=== PATIENT | male | born 1965 | race Caucasian/White ===

== ENCOUNTER → 2016-12-03 | Outpatient (CLI) | payer BC ==
[~2016-12-03] MED LIST: ADDERALL XR20 MG PO; CRESTOR20 MG PO; EFFEXOR XR75 MG PO; FENOFIBRATE160 MG PO; FLEXERIL10 MG PO; FLOMAX 0.4MG C0.4 MG PO; HYDROCODONE/ACE1 TA5 PO; KEFLEX 500MG.500 MG PO; LISINOPRIL 10MG10 MG PO; LORTAB 500 MG-71 TAB PO; MEDROL 4MG. DOSE4 MG PO; NORCO 325 MG-51 TAB PO; PERCOCET 10 MG1 EACH PO; PRILOSEC20 MG PO; TAMSULOSIN HYD0.4 MG PO; VICODIN 5/500 T1 TAB PO
--- NOTE | 2016-12-03 11:47 | RADIOLOGY REPORT PS360 ---
CTA-CHEST HISTORY: Chest pain, hypertension, diabetes CP, HTN, DM ORDERING PHYSICIAN: BEAU MARTIN MD PATIENT AGE: 51 years TECHNIQUE: Helical acquisition obtained following the bolus administration of 60 mL of Isovue 370 followed by a saline bolus. Axial, sagittal, and coronal reformatted images are generated and reviewed. COMPARISON: None FINDINGS: There is excellent pulmonary artery opacification showing no evidence of pulmonary embolus. No evidence of aortic aneurysm. There is some coronary artery calcification noted. Normal heart size. No pericardial thickening. No mediastinal or hilar adenopathy. There is evidence of old granulomatous disease. Coarse calcification is noted in the right upper lobe measuring 14 x 5 mm. Noncalcified pulmonary nodule in the right middle lobe at 6 x 5 mm. Calcified granulomas are present. No lobar consolidation or collapse. No pleural effusions. Upper abdominal images are unremarkable. There are degenerative changes in the thoracic spine. IMPRESSION: 1. No evidence of pulmonary embolus or aortic aneurysm. 2. Coronary artery calcification indicating coronary artery disease. 3. 6 mm noncalcified nodule right middle lobe. Suggest 6 month follow-up to confirm stability. 4. Old granulomatous disease
--- NOTE | 2016-12-04 13:54 | RADIOLOGY REPORT PS360 ---
History and Indications: Hypertension, diabetes, hyperlipidemia, chest pain and shortness of breath. Procedure: Patient received a 0.4 mg of Lexiscan, resting heart rate was 64 bpm resting blood pressure 145/74 with Lexiscan maximum heart rate achieved was 90 bpm which is less than 85% of the maximum predicted heart rate and a blood pressure was 121/70. With Lexiscan patient complained of mild chest discomfort and shortness of breath. Electrocardiogram: Resting electrocardiogram showed sinus rhythm inferior and lateral ST-T wave changes consider ischemia versus strain pattern. With Lexiscan there is less than 1.[address] segment depression noted from the baseline EKG. The EKG portion of the Lexiscan is nondiagnostic secondary to baseline abnormal EKG. Cardiac stress and resting SPECT images: Cardiac stress and the suspect images were obtained using technetium 99 Myoview 10.9 mCi at rest, and 31.4 mCi at stress, gated SPECT further analysis of segmental wall motion and calculation of the ejection fraction was also done. Cardiac stress and the suspect images show a mild fixed defect in the inferior wall with normal contractility in the gated SPECT is likely secondary to soft tissue attenuation from the diaphragm, no reversible ischemia seen. Computer derived ejection fraction 56% with no obvious regional wall motion abnormality. Right ventricle is mildly enlarged with normal contractility. Conclusion: 1. The EKG portion of the Lexiscan is nondiagnostic. 2. No obvious scintigraphic evidence of reversible ischemia seen. Computer derived ejection fraction 56% with no obvious regional wall motion abnormality, right ventricle is mildly enlarged with normal contractility.
== END ==
LOC: RAD 07:12
DX: R07.9 Chest pain, unspecified (principal); I10 Essential (primary) hypertension; E11.9 Type 2 diabetes mellitus without complications
CPT/HCPCS: A9502; J2785; Q9967